=== PATIENT | female | born 1990 | race Caucasian/White ===

== ENCOUNTER 2016-09-24 23:15 | Emergency (ER) | payer OTHER ==
[~2016-09-24] VITALS: Ht 157.5 cm; Wt 84.8 kg
[~2016-09-24 23:15] MED LIST: METF750T PO; OMEP40CA PO
[2016-09-24 23:20] VITALS: Ht 157.5 cm; Wt 84.8 kg
[2016-09-25 00:32] LABS: URINE APPEARANCE CLEAR (CLEAR); URINE BILIRUBIN NEG (NEG); URINE COLOR YELLOW; URINE EPITHELIAL CELL AUTO 20-30 /lpf (0-5); URINE NITRITE NEG (NEG); URINE PH 6.5 (4.5-7.5); URINE SPECIFIC GRAVITY 1.023 (1.000-1.030); UROBILINOGEN NEG (NEG); ZZUR CULT IF INDIC CLEAN CATCH YES
[2016-09-25] MEDS ORDERED: GABA-113 PO (00:33)
[2016-09-25] MEDS ORDERED: FLUO20CA35 PO (00:33)
[2016-09-25] MEDS ORDERED: RISP3TAB3 PO (00:33)
[2016-09-25] MEDS ORDERED: CETI10TA84 PO (00:33)
[2016-09-25] MEDS ORDERED: GLC/500 PO (00:33)
[2016-09-25] MEDS ORDERED: LISI-526 PO (00:33)
[2016-09-25 00:35] LABS: MANUAL MICROSCOPIC REQUIRED? NO; REVIEW REQ? NO
[2016-09-25 01:51] VITALS: BP 130/92; PULSE 78; TEMP 36.9; O2SAT 98
--- NOTE | 2016-09-25 03:19 | EMERGENCY ROOM VISIT NOTE ---
History Report prepared by Jacobo: Mathew Zamorano Under the Supervision of: Dr. Brenton Lei D.O. First contact with patient: 00:22 Chief Complaint: STD FEMALE Stated Complaint: STD TESTING REQUEST History of Present Illness The patient is a 26 year old female who presents to the Emergency Room with complaints of a possible sudden STD occurring two days ago. The patient states that she recently has been in a relationship and had sex twice two days ago. She reports that she did not use a condom and does not take control pills. The patient states that she was given information from another girl that her and the patient's boyfriend have been having sex and the patient's boyfriend has genital herpes. The patient reports that this information prompted her to visit the ED for a check up. She reports that she has a history of HPV and intermittently has flair ups. 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 She notes that when she had sex with her boyfriend he did not have any obvious lesions. The patient denies headache, change in vision, fevers, chest pain, shortness of breath, nausea, vomiting, diarrhea, pain with urination, and vaginal discharge or bleeding. Source of History: patient Onset: two days ago Position: other (global) Quality: other (global) Timing: other (sudden) Associated Symptoms: No urinary symptoms (sudden) Review of Systems See HPI for pertinent positives & negatives. A total of 10 systems reviewed and were otherwise negative. Past Medical & Surgical Medical Problems: (1) Hiatal hernia Family History Diabetes mellitus FH: hypertension Social History Smoking Status: Never Smoker Marital Status: in relationship Housing Status: lives with family Occupation Status: unemployed Current/Historical Medications Scheduled Cetirizine (Zyrtec), 10 MG PO DAILY Fluoxetine (Prozac), 20 MG PO DAILY Gabapentin (Neurontin), 300 MG PO TID Lisinopril (Prinivil), 30 MG PO DAILY Metformin Hcl (Glucophage), 500 MG PO BID Risperidone (Risperdal), 3 MG PO HS Allergies Coded Allergies: No Known Allergies (Unverified , 09/25/16) Physical Exam Vital Signs Date Time Temp Pulse Resp B/P (MAP) Pulse Ox O2 Delivery O2 Flow Rate FiO2 09/25/16 01:51 36.9 78 18 130/92 98 09/25/16 01:42 78 18 130/92 98 Room Air 09/24/16 23:20 36.9 78 18 140/96 98 Room Air Physical Exam GENERAL: Sitting up in bed, alert, well appearing, well nourished, no distress, non-toxic EYE EXAM: normal conjunctiva, PERRL and EOM's grossly intact OROPHARYNX: no exudate, no erythema, lips, buccal mucosa, and tongue normal and mucous membranes are moist NECK: supple, no nuchal rigidity, no adenopathy, non-tender LUNGS: Clear to auscultation. Normal chest wall mechanics HEART: no murmurs, S1 normal and S2 normal ABDOMEN: abdomen soft, non-tender, normo-active bowel sounds, no masses, no rebound or guarding. BACK: Back is symmetrical on inspection and there is no deformity, no midline tenderness, no CVA tenderness. SKIN: no rashes and no bruising GENITAL: Normal external genitalia. No lesions. No vaginal discharge. Normal vaginal mucosa. UPPER EXTREMITIES: upper extremities are grossly normal. LOWER EXTREMITIES: No pitting edema. NEURO EXAM: Normal sensorium Medical Decision & Procedures Laboratory Results Test 09/25/16 00:15 09/25/16 01:35 Urine Color YELLOW Urine Appearance CLEAR (CLEAR) Urine pH 6.5 (4.5-7.5) Urine Specific [place] 1.023 (1.000-1.030) Urine Protein NEG (NEG) Urine Glucose (UA) NEG (NEG) Urine Ketones NEG (NEG) Urine Occult Blood NEG (NEG) Urine Nitrite NEG (NEG) Urine Bilirubin NEG (NEG) Urine Urobilinogen NEG (NEG) Urine Leukocyte Esterase TRACE (NEG) Urine WBC (Auto) 5-10 /hpf (0-5) Urine RBC (Auto) 0-4 /hpf (0-4) Urine Hyaline Casts (Auto) 1-5 /lpf (0-5) Urine Epithelial Cells (Auto) 20-30 /lpf (0-5) Urine Bacteria (Auto) 3+ (NEG) Urine Test NEG (NEG) Laboratory results per my review. ED Course ED COURSE: Vital signs were reviewed and showed normal. The patients medical record was reviewed The above diagnostic studies were performed and reviewed. ED treatments and interventions as stated above. 0024: The patient was evaluated in room A10. A complete history and physical examination was performed. 0150: Upon reevaluation, the patient is feeling better. she denies seeing a herpes outbreak on her partner and denied HIV testing. I discussed the findings and the treatment plan with the patient. She verbalizes agreement and understanding. She was discharged home. Medical Decision The differential diagnosis includes but is not limited to: Genital Herpes, Chlamydia, GC. Medication Reconciliation: I attest that I have personally reviewed the patient' s current medication list. Blood pressure screening: Patient was found to have normal blood pressure on screening and does not require follow-up. Patient is a 26 year old female who presents the ER for STD exposure. She is concerned that she may have been exposed to herpes from her boyfriend. He had no outbreak during sexual intercourse. Did not wear a condom. Declined HIV testing. On exam there is no signs of herpes. She does admit to having HPV in the past. No other complaints. GC and chlamydia were sent. Did not see the benefit and testing for herpes at this time with no reported lesions by either her or her boyfriend. Instructed her to refrain from sex for 48 hours. UA was negative. was negative. Stressed the importance of using protection. Discussed with Pt concerning signs and symptoms to watch out for. Pt was instructed to follow up with their PCP and discussed with the patient their option to return to the ED at anytime for persistent or worsening symptoms. The appropriate anticipatory guidance and out-patient management, including indications for return to the emergency department, were explained at length to the patient and understood. Impression Primary Impression: STD exposure Scribe Attestation The scribe's documentation has been prepared under my direction and personally reviewed by me in its entirety. I confirm that the note above accurately reflects all work, treatment, procedures, and medical decision making performed by me. Departure Information Dispostion Home / Self-Care Referrals No Doctor, Assigned (PCP) Forms HOME CARE DOCUMENTATION FORM, IMPORTANT VISIT INFORMATION, WORK / SCHOOL INSTRUCTIONS Patient Instructions My [facility] Additional Instructions Please follow up with your primary care doctor with in the next 24 hours. Any worsening of your symptoms, please return to the ED immediately. This includes abdominal pain, vaginal bleeding, vaginal discharge, rash or any other concerning signs or symptoms from your standpoint. You will receive a call from us if your testing comes back positive within the next 48 hours.
--- NOTE | 2016-09-27 16:25 | Pharmacy Progress Note ---
ED Pharmacist Culture FollowUp Date of Service: Sep 27, 2016. E. coli isolated in urine culture. Patient's chief complaint was not related to urinary complaints. Patient denied pain with urination. Urinalysis with a significant amount of epithelial cells. E. coli isolated is likely a contaminant. No intervention required at this time. Case discussed w Dr. Marshall.
[2016-09-27 21:32] LABS: CHLAMYDIA TRACH RNA*** NOT DETECTED (NOT DETECTED); GC (NEIS GONORRHOEAE)RNA** NOT DETECTED (NOT DETECTED)
== END 2016-09-25 01:51 | disposition home or self-care (01) ==
LOC: C.EDB 23:16 → C.EDA 09-25 01:51
DX: Z20.2 Contact with and (suspected) exposure to infections with a predominantly sexual mode of transmission (principal); K44.9 Diaphragmatic hernia without obstruction or gangrene; Z83.3 Family history of diabetes mellitus; Z82.49 Family history of ischemic heart disease and other diseases of the circulatory system